=== PATIENT | male | born 1980 | race Caucasian/White ===

== ENCOUNTER 2018-08-31 09:26 | Emergency (ER) | payer MEDICAID, OTHER ==
[~2018-08-31] VITALS: Ht 175.3 cm; Wt 78.0 kg
[2018-08-31 09:35] VITALS: BP 147/84
--- NOTE | 2018-08-31 09:38 | NUR ---
PT AMB TO BED 7 WITH STEADY GAIT
--- NOTE | 2018-08-31 09:53 | NUR ---
PT BIB SELF C/O BUG BITE FROM [facility] 2 HOURS AGO, RED CIRCULAR NON RAISED AREA NOTED TO 4TH FINGER ON LEFT HAND. PT SITTING IN BED CALM AND ALERT, ER MD AWARE OF PT STATUS. NO PMH
--- NOTE | 2018-08-31 10:25 | NUR ---
Patient discharged with v/s stable. Written and verbal after care instructions given and explained. Patient alert, oriented and verbalized understanding of instructions. Ambulatory with steady gait. All questions addressed prior to discharge. ID band removed. Patient advised to follow up with PMD. Rx of benadryl given. Patient educated on indication of medication including possible reaction and side effects. Opportunity to ask questions provided and answered.
[2018-08-31 10:26] VITALS: BP 112/85
== END 2018-08-31 10:25 | disposition home or self-care (01) ==
LOC: MED 09:26
DX: T63.301A Toxic effect of unspecified spider venom, accidental (unintentional), initial encounter (principal); Y92.89 Other specified places as the place of occurrence of the external cause
CPT/HCPCS: 99282; Q0163

== ENCOUNTER 2019-04-29 05:03 | Emergency (ER) | payer MEDICAID, OTHER ==
[~2019-04-29] VITALS: Ht 172.7 cm; Wt 81.2 kg
[2019-04-29 05:05] VITALS: BP 148/95
[2019-04-29 05:10] VITALS: BP 148/95
== END 2019-04-29 05:36 | disposition home or self-care (01) ==
LOC: MED 05:03
DX: J20.9 Acute bronchitis, unspecified (principal)
CPT/HCPCS: 99283

== ENCOUNTER 2019-07-29 23:33 | Emergency (ER) | payer MEDICAID, OTHER ==
[~2019-07-29] VITALS: Ht 175.3 cm; Wt 75.7 kg
--- NOTE | 2019-07-29 23:33 | NUR ---
NEGATIVE FOR COVID SCREENING WHILE PT IN TENT.
[2019-07-29 23:48] VITALS: BP 142/84
--- NOTE | 2019-07-30 00:20 | NUR ---
PT LWBS BY KERI LANDRY
== END 2019-07-30 00:20 | disposition left against medical advice (07) ==
LOC: MED 23:33
DX: H92.02 Otalgia, left ear (principal); Z53.21 Procedure and treatment not carried out due to patient leaving prior to being seen by health care provider

== ENCOUNTER 2019-07-30 12:23 | Emergency (ER) | payer MEDICAID ==
[~2019-07-30] VITALS: Ht 172.7 cm; Wt 73.5 kg
[2019-07-30 12:27] VITALS: BP 125/81
--- NOTE | 2019-07-30 12:31 | NUR ---
PT AMBULATED TO ER BED 06
--- NOTE | 2019-07-30 12:32 | NUR ---
39 Y/O MALE FROM HOME C/O LT EAR PAIN SINCE YESTERDAY. PT STATES HE WAS SEEN AT [facility] LAST NIGHT AND DID NOT RECEIVE ANY MEDICATION. DENIES DRAINAGE FROM EAR. NO CHANGE IN EARING. DENIES TINNITIS. 2/10 ACHING PAIN AT THIS TIME. MEDHX: DENIES ALLERGIES: NKA
--- NOTE | 2019-07-30 12:37 | NUR ---
Pt report given to GINI JONES. Transfer of care at this time.
--- NOTE | 2019-07-30 12:42 | NUR ---
DR LOTT EVALUATING PT AT BEDSIDE
--- NOTE | 2019-07-30 12:42 | NUR ---
[place] in ED - 07/30/[address] LOTT EVALUATING PT AT BEDSIDE
--- NOTE | 2019-07-30 13:11 | NUR ---
PT LEFT EAR IRRIGATED WITH WARM WATER AND HYDROGEN PEROXIDE, ERMD NOTIFIED.
[2019-07-30 13:27] VITALS: BP 125/81
--- NOTE | 2019-07-30 13:27 | NUR ---
Patient discharged with v/s stable. Written and verbal after care instructions given and explained. Patient alert, oriented and verbalized understanding of instructions. Ambulatory with steady gait. All questions addressed prior to discharge. ID band removed. Patient advised to follow up with PMD. Rx of Penicillin VK given. Patient educated on indication of medication including possible reaction and side effects. Opportunity to ask questions provided and answered.
== END 2019-07-30 13:27 | disposition home or self-care (01) ==
LOC: MED 12:23
DX: H61.22 Impacted cerumen, left ear (principal); H66.92 Otitis media, unspecified, left ear
CPT/HCPCS: 99283

== ENCOUNTER 2019-09-19 12:59 | Emergency (ER) | payer MEDICAID ==
[~2019-09-19] VITALS: Ht 172.7 cm; Wt 75.7 kg
[2019-09-19 13:11] VITALS: BP 149/115
--- NOTE | 2019-09-19 13:25 | NUR ---
39/M C/O ANXIETY ON/OFF X 2 DAYS. STARTED AFTER WORKING, STATES STRESS FROM WORK. SOB ASSOCIATED WITH ANXIETY EPISODES. STATES SOME BACK PAIN. PT STATES HE THINKS HE NEEDS SOME VITAMINS. DENIES PAIN, SOB, FEVER/CHILLS, COUGH, SICK CONTACTS. NAD. PMH: DEPRESSION
[2019-09-19 14:14] VITALS: BP 140/102
--- NOTE | 2019-09-19 14:14 | NUR ---
Patient discharged with v/s stable. Written and verbal after care instructions given and explained. Patient alert, oriented and verbalized understanding of instructions. Ambulatory with steady gait. All questions addressed prior to discharge. ID band removed. Patient advised to follow up with PMD. Rx of Atarax 50mg given. Patient educated on indication of medication including possible reaction and side effects. Opportunity to ask questions provided and answered.
== END 2019-09-19 14:14 | disposition home or self-care (01) ==
LOC: MED 12:59
DX: F41.9 Anxiety disorder, unspecified (principal); R03.0 Elevated blood-pressure reading, without diagnosis of hypertension; Z88.0 Allergy status to penicillin
CPT/HCPCS: 82948; 99283

== ENCOUNTER 2019-12-04 11:39 | Emergency (ER) | payer MEDICAID ==
[~2019-12-04] VITALS: Ht 182.9 cm; Wt 81.6 kg
[2019-12-04 11:48] VITALS: BP 133/97
[2019-12-04] MEDS: LIDOCAINE MPF 1% 10 MG/ML VIAL INJ ONE (12:15)
[2019-12-04] MEDS: BACITRACIN OINT 500 UNITS/GM PKT TP ONE (12:15)
[2019-12-04 13:05] VITALS: BP 133/97
== END 2019-12-04 13:06 | disposition home or self-care (01) ==
LOC: MED 11:39
DX: S81.811A Laceration without foreign body, right lower leg, initial encounter (principal); Z88.0 Allergy status to penicillin; Z98.890 Other specified postprocedural states; W26.9XXA Contact with unspecified sharp object(s), initial encounter; Y93.89 Activity, other specified; Y92.89 Other specified places as the place of occurrence of the external cause; Y99.8 Other external cause status
CPT/HCPCS: 12002; 90471; 90715; 99283; J2001

== ENCOUNTER 2021-07-03 10:09 | Emergency (ER) | payer MEDICAID, OTHER ==
[~2021-07-03] VITALS: Ht 170.2 cm; Wt 79.4 kg
[2021-07-03 10:14] VITALS: BP 176/105
[2021-07-03] MEDS ORDERED: LIDOCAINE/EPI 1% 1:100000 20 ML VIAL INJ ONE ×2 (10:20→12:12)
[2021-07-03] MEDS ORDERED: ACETAMINOPHEN EXTRA STRENGTH 500 MG TAB PO ONE (10:20)
[2021-07-03] MEDS ORDERED: BACITRACIN OINT 500 UNITS/GM PKT TP ONE (10:20)
--- NOTE | 2021-07-03 10:27 | NUR ---
RADIOLOGY AT BEDSIDE.
[2021-07-03] MEDS ORDERED: ACET-10509 PO (12:47)
[2021-07-03] MEDS ORDERED: BACI1PAC6 TP (12:47)
[2021-07-03] MEDS ORDERED: CLIN300C2 PO (12:47)
[2021-07-03 14:00] VITALS: BP 124/89
--- NOTE | 2021-07-03 14:43 | NUR ---
Patient discharged with v/s stable. Written and verbal after care instructions FOR LACAERATION CARE given and explained. Patient alert, oriented and verbalized understanding of instructions. Ambulatory with steady gait. All questions addressed prior to discharge. ID band removed. Patient advised to follow up with PMD. Rx of ACETAMINOPHEN, BACITRACIN ZINC, AND CLINDAMYCIN given. Opportunity to ask questions provided and answered.
--- NOTE | 2021-07-03 14:44 | NUR ---
Chart checked and completed. The patient's care was reviewed and supervised by Karely Carrera RN.
== END 2021-07-03 14:43 | disposition home or self-care (01) ==
LOC: MED 10:09
DX: S51.812A Laceration without foreign body of left forearm, initial encounter (principal); S61.412A Laceration without foreign body of left hand, initial encounter; S61.211A Laceration without foreign body of left index finger without damage to nail, initial encounter; S61.215A Laceration without foreign body of left ring finger without damage to nail, initial encounter; Z98.890 Other specified postprocedural states; Z79.899 Other long term (current) drug therapy; Z79.2 Long term (current) use of antibiotics; Z88.0 Allergy status to penicillin; W26.8XXA Contact with other sharp object(s), not elsewhere classified, initial encounter; Y93.89 Activity, other specified; Y92.89 Other specified places as the place of occurrence of the external cause; Y99.8 Other external cause status
CPT/HCPCS: 12005; 73130; 99283; J2001; Q0092

== ENCOUNTER 2021-08-30 12:54 | Emergency (ER) | payer MEDICAID ==
[~2021-08-30] VITALS: Ht 170.2 cm; Wt 90.7 kg
[~2021-08-30 12:54] MED LIST: ACET-10509 PO; BACI1PAC6 TP; CLIN300C2 PO
[2021-08-30 13:14] VITALS: BP 116/97
--- NOTE | 2021-08-30 14:37 | NUR ---
WOUND ON LEFT ANTERIOR ELBOW WRAPPED AND BANDAGED, + PCS AFTER PROCEDURE
--- NOTE | 2021-08-30 14:40 | NUR ---
41 Y.O. M C/O R KNEE PAIN S/P FALL X TODAY. PT STATED HE WAS CLEANING HIS POOL AND TWISTED AND HIS KNEE GAVE OUT. PT ONLY HAS PAIN WHEN HE IS MOVING IT. DENIES SOB, CHEST PAIN AND N/V/D. A&0X4, SKIN INTACT, WHEELCHAIR ASSISTED AND VITALS WNL FOR PT. NKA NP: DENIES
[2021-08-30] MEDS ORDERED: KETOROLAC 30 MG/ML VIAL IM ONE (14:50)
[2021-08-30] MEDS ORDERED: HYDROcodone/APAP 7.5/325 MG 1 TAB PO ONE (14:50)
--- NOTE | 2021-08-30 15:03 | NUR ---
PER MID-LEVEL KNEE IMOBILIZER PLACED ON PTS RIGHT KNEE, PT TOLERATED THE DEVICE, +CMS
[2021-08-30] MEDS ORDERED: ACET-8386 PO (15:42)
[2021-08-30] MEDS ORDERED: IBUP-2213 PO (15:42)
--- NOTE | 2021-08-30 16:10 | NUR ---
PER ER MID-LEVEL PT WAS PROVIDED WITH CRUTCHES, CRUTCHES WERE SIZED TO PT AND PT WAS GIVEN 1 ON 1 INSTRUCTIONS, PT TOLERATED CRUTCHES WELL
[2021-08-30 16:32] VITALS: BP 116/97
--- NOTE | 2021-08-30 16:32 | NUR ---
Patient discharged with v/s stable. Written and verbal after care instructions given and explained. Patient alert, oriented and verbalized understanding of instructions. Wheel Chair Assisted with to car. All questions addressed prior to discharge. ID band removed. Patient advised to follow up with PMD. Rx of IBUPROFEN AND HYDROCODON-ACETAMINOPHEN 5-325 given. Patient educated on indication of medication including possible reaction and side effects. Opportunity to ask questions provided and answered.
== END 2021-08-30 16:32 | disposition home or self-care (01) ==
LOC: MED 12:54
DX: S82.141A Displaced bicondylar fracture of right tibia, initial encounter for closed fracture (principal); Z88.0 Allergy status to penicillin; X58.XXXA Exposure to other specified factors, initial encounter; Y93.89 Activity, other specified; Y92.89 Other specified places as the place of occurrence of the external cause; Y99.8 Other external cause status
CPT/HCPCS: 29505; 73562; 96372; 99283; J1885